=== PATIENT | male | born 1990 | race Caucasian/White ===

== ENCOUNTER → 2022-10-29 | Outpatient (CLI) | payer MEDICAID ==
[~2022-10-29] MED LIST: GADOTERATE 0.5 MMOL/ML (CLARISCAN) 20 ML VIAL IV ONE
--- NOTE | 2022-10-29 17:58 | Diagnostic Imaging Report ---
Clinical indication: Patient having gait difficulties, weakness in bilateral legs x3 years now. Exam: MRI of the brain performed without and with 12 cc of Clariscan IV contrast. Sequences include axial DWI, ADC map, coronal gradient echo, axial FLAIR, axial T1, axial T2, axial T1 post IV contrast whole brain, coronal T1 fat-sat post IV contrast whole brain, and sagittal T1 fat-sat post IV contrast whole brain. Comparison: None. Findings: There is an 8mm x 10 mm x 8 mm (AP x Trans x CC) heterogeneous avidly enhancing mass in the right cerebellopontine angle region and is near the right IAC region. There appears to be minimal extension into the medial aspect of the right IAC. There is no dural tail seen. There is no other enhancing mass seen. There is no evidence of acute cerebral infarct, intracranial hemorrhage, or gross mass effect. The brain parenchymal volume appears appropriate for patient's age. There is normal petty-white matter distinction. There is no significant midline shift or herniation. [place] vascular structures show no gross abnormality as visualized. There is no evidence of hydrocephalus. The basal cisterns are unremarkable. The skull, extracranial soft tissue, and orbits are unremarkable. There is mild mucosal thickening involving the right maxillary sinus. Temporal bones show no significant abnormality. IMPRESSION: 1: There is a 10 mm enhancing mass in the right cerebellopontine angle near the right IAC and a right vestibular schwannoma may be considered. MRI of the IACs with and without contrast is suggested for further evaluation to better evaluate. 2: The remainder of the brain parenchyma is unremarkable. Dictated by: Dictated on workstation # [id number]
== END ==
LOC: RAD 14:00
PROVIDERS: ATTEND Nurse Practitioner Family
DX: R26.9 Unspecified abnormalities of gait and mobility (principal); R29.898 Other symptoms and signs involving the musculoskeletal system; R42 Dizziness and giddiness
CPT/HCPCS: 70553